=== PATIENT | male | born 1995 | race Caucasian/White ===

== ENCOUNTER 2018-09-05 01:50 | Emergency (ER) | payer BC ==
[2018-09-05] MEDS ORDERED: NS 1,000 ML IV ONE (02:12)
--- NOTE | 2018-09-05 02:12 | EDPHY ---
H & P Stated Complaint: abd pain and nausea since [place] Time Seen by Provider: 09/05/18 02:11 HPI/ROS: HPI CHIEF COMPLAINT: Abdominal pain HISTORY OF PRESENT ILLNESS: 23-year-old male, presents emergency room with abdominal pain. Patient states around midnight he developed some generalized abdominal pain and mainly up in his upper abdomen however this now is localized to his periumbilical right lower quadrant. He has had associated nausea but no vomiting no diarrhea. Did not eat much today. He had a decreased appetite which she states is not initially unusual for him. Denies chest pain or shortness of breath, denies urinary symptoms, denies testicular pain. Denies fever. Past Medical History: Denies significant medical history Past Surgical History: Denies significant surgical history Social History: Denies drugs alcohol tobacco. Visiting his parents here in [place] from [facility]. Family History: Noncontributory ROS REVIEW OF SYSTEMS: 10 Systems were reviewed and negative with the exception of the elements mentioned in the history of present illness. Exam Constitutional triage nursing summary reviewed, vital signs reviewed, awake/ alert. Eyes normal conjunctivae and sclera, EOMI, PERRLA. HENT normal inspection, atraumatic, moist mucus membranes, no epistaxis, neck supple/ no meningismus, no raccoon eyes. Respiratory clear to auscultation bilaterally, normal breath sounds, no respiratory distress, no wheezing. Cardiovascular rate normal, regular rhythm, no murmur, no edema, distal pulses normal. Gastrointestinal mild tender palpation periumbilical right lower quadrant, no peritoneal signs, no rebound, no guarding, normal bowel sounds, no distension, no pulsatile mass. Genitourinary no CVA tenderness. Musculoskeletal no midline vertebral tenderness, full range of motion, no calf swelling, no tenderness of extremities, no meningismus, good pulses, neurovascularly intact. Skin pink, warm, & dry, no rash, skin atraumatic. Neurologic awake, alert and oriented x 3, AAOx3, moves all 4 extremities equally, motor intact, sensory intact, CN II-XII intact, normal cerebellar, normal vision, normal speech. Psychiatric normal mood/affect. Heme/Lymph/Immune no lymphadenopathy. Differential diagnosis includes but is not limited to and in no particular order : Bowel obstruction, appendicitis, gallbladder disease, diverticulitis, colitis , enteritis, perforated viscus, gastritis, GERD, esophagitis, urinary tract infection, pyelonephritis, kidney stones Medical Decision Making: Plan for this patient IV establishment IV fluid bolus IV Dilaudid for pain control IV Zofran for nausea, CT scan abdomen pelvis with IV contrast. Re-evaluation: CT scan abdomen pelvis with IV contrast called to me by Dr. Blount negative for acute inflammatory process. Constipation present. Also noted that the appendix is 5 mm without any acute stranding or acute inflammation. I discussed the patient's blood work, CT scan with the patient Went over in detail. He declined pain medicine here. His abdomen is soft nontender. Does have a lot of stool. Given that is abdomen is soft nontender here, no acute inflammatory process seen on the CT I will allowed to go home however he understands to monitor himself closely if he develops worsening abdominal pain, fever, vomiting or not doing well he needs return emergency room. He is comfortable this plan and understands. He will return if he has worsening abdominal pain fever vomiting. Source: Patient - Personal History Current Tetanus/Diphtheria Vaccine: Yes Tetanus Vaccine Date: 2015 - Medical/Surgical History Hx Asthma: No Hx Chronic Respiratory Disease: No Hx Diabetes: No Hx Cardiac Disease: No Hx Renal Disease: No Hx Cirrhosis: No Hx Alcoholism: No Hx HIV/AIDS: No Hx Splenectomy or Spleen Trauma: No Other PMH: PNA - Social History Smoking Status: Never smoked Constitutional: Initial Vital Signs Temperature (C) 36.8 C 09/05/18 01:55 Heart Rate 66 09/05/18 01:55 Respiratory Rate 18 09/05/18 01:55 Blood Pressure 142/76 H 09/05/18 01:55 O2 Sat (%) 97 09/05/18 01:55 O2 Delivery Mode Room Air Allergies/Adverse Reactions: No Known Allergies Allergy (Verified 09/05/18 01:52) Home Medications: Medication Instructions Recorded NK [No Known Home Meds] 09/05/18 Medical Decision Making - Data Points Laboratory Results: Laboratory Results 09/05/18 02:14 09/05/18 02:14 Medications Given: Discontinued Medications Hydromorphone HCl (Dilaudid) 0.5 mg IVP EDNOW ONE Stop: 09/05/18 02:21 Last Admin: 09/05/18 04:22 Dose: Not Given Sodium Chloride (Ns) 1,000 mls @ 0 mls/hr IV EDNOW ONE; Wide Open PRN Reason: Protocol Stop: 09/05/18 02:13 Last Admin: 09/05/18 02:28 Dose: 1,000 mls Ondansetron HCl (Zofran) 4 mg IVP EDNOW ONE Stop: 09/05/18 02:21 Last Admin: 09/05/18 04:22 Dose: Not Given Point of Care Test Results: Chemistry 09/05/18 02:27 POC Sodium 143 mEq/L mEq/L (135-145) POC Potassium 3.1 mEq/L L mEq/L (3.3-5.0) POC Chloride 102 mEq/L mEq/L (97-110) POC BUN 14 mg/dL mg/dL (7-23) POC Creatinine 0.9 mg/dL mg/dL (0.7-1.3) POC Glucose 121 mg/dL H mg/dL (70-100) ISTAT H&H 09/05/18 02:27 POC Hgb 16.0 gm/dL gm/dL (13.7-17.5) POC Hct 47 % % (40-51) Departure - Departure Disposition: Home, Routine, Self-Care Clinical Impression: Abdominal pain Qualifiers: Abdominal location: generalized Qualified Code(s): R10.84 - Generalized abdominal pain Condition: Good Instructions: Acute Abdominal Pain (ED) Additional Instructions: 1. [place] diet over the next 24-48 hours 2. Return to the emergency room if you develops worsening abdominal pain, fever , vomiting or not doing well Referrals: NONE *PRIMARY CARE P,. [Primary Care Provider] - As per Instructions
[2018-09-05] MEDS ORDERED: HYDROmorphONE/DILAUDID 2 MG/ML INJ IVP ONE (02:20)
[2018-09-05] MEDS ORDERED: ONDANSETRON 4 MG/2 ML VIAL IVP ONE (02:20)
[2018-09-05 02:36] LABS: PLATELET COUNT 237 10^3/uL (150-400)
[2018-09-05] MEDS ORDERED: IOPAMIDOL (ISOVUE-300) 100 ML BTL ONE (02:43)
[2018-09-05 05:06] VITALS: BP 154/68
== END 2018-09-05 05:06 | disposition home or self-care (01) ==
DX: R10.84 Generalized abdominal pain (principal); E86.9 Volume depletion, unspecified
CPT/HCPCS: 82435-PO; 82565-PO; 82947-PO; 84132-PO; 84295-PO; 84520-PO; 85014-PO; J1170; J2405; Q9967